=== PATIENT | female | born 2000 | race Caucasian/White ===

== ENCOUNTER 2020-07-01 08:36 | Inpatient (IN) | payer BC, SELFPAY ==
[2020-07-01] VITALS (14 sets, daily range): BP systolic 92–116; BP diastolic 52–80; PULSE 113–143; RESP 15–38; TEMP 36.5–37.1; O2SAT 96–100; BMI 19.8
--- NOTE | ~2020-07-01 | CT_ITS ---
EXAMINATION: CTA chest PE abdomen pel DATE: 07/02/2020 09:03 INDICATION: Acute pancreatitis. TECHNIQUE: Computed tomography angiography (CTA) of the chest was performed with 100 mL Omnipaque-350 intravenous contrast timed to evaluate the pulmonary arteries. Coronal maximum intensity projection 3D-reconstructions were created by the technologist. Computed tomography (CT) of the abdomen and pelv is was performed with intravenous contrast. Automated exposure control and iterative reconstruction t echnique were employed. The dose-length product was 254.06 mGy-cm. COMPARISON: None. FINDINGS: CTA chest: The lungs demonstrate mild dependent atelectasis. There are trace pleural effusions. The h eart size is normal. No pericardial effusion. Pneumomediastinum is noted. There is no pulmonary embol us. CT abdomen and pelvis: The liver is normal. The gallbladder is normal in size. Gallbladder wall thick ening is noted, likely interstitial edema. The spleen is normal. There is mild edema adjacent to the tail of the pancreas, consistent with acute interstitial pancreatitis. The adrenal glands and kidneys are normal. There are no dilated loops of bowel. The appendix is normal. There are no pathologically enlarged lymph nodes. There is trace pelvic ascites. The bones are unremarkable. IMPRESSION: 1. Mild acute interstitial pancreatitis. 2. No pulmonary embolus. 3. Pneumomediastinum. Reviewed, dictated and finalized at location B.
--- NOTE | ~2020-07-01 | XR_ITS ---
XR chest 1V portable DATE: 07/03/2020 05:38 INDICATION: Pneumomediastinum TECHNIQUE: Portable upright AP chest on 07/03/2020 at 0535 hours COMPARISON: 07/02/2020 CTA chest 07/01/2020 portable AP chest FINDINGS: Azygos lobe, normal variant. Normal heart size. Pneumomediastinum is again present. No pneu mothorax is evident. No hilar or mediastinal enlargement is evident. Normal heart size. No pleural effusion. Minimal atele ctasis at the lung bases. IMPRESSION: Minimal atelectasis at the lung bases Pneumomediastinum Reviewed, dictated and finalized at location A.
--- NOTE | ~2020-07-01 | XR_ITS ---
EXAMINATION: XR chest 1V portable DATE: 07/01/2020 11:42 INDICATION: Admitted ketoacidosis TECHNIQUE: frontal view of the chest was obtained. COMPARISON: None FINDINGS: The lungs are clear with no focal airspace opacities, pulmonary edema, pleural effusion or pneumothor ax. Incidentally noted normal variant azygos lobe and fissure. The cardiomediastinal silhouette is no rmal. Visualized bones and soft tissues are unremarkable. IMPRESSION: 1. No acute cardiopulmonary disease. Reviewed, dictated and finalized at location A.
[2020-07-01 08:46] LABS: Glucose Point of Care > 500 (65-105)
[2020-07-01] MEDS: SODIUM CHLORIDE 0.9% IV 1,000 ML 999 ML IV CONT ×4 (09:12→12:50)
[2020-07-01] MEDS: INSULIN HUMAN REGULAR (*BKC) 100 UNITS in SODIUM CHLORIDE 0.9% IV 99 ML 8.8 UNITS IV CONT (09:21)
[2020-07-01 09:25] LABS: Basophils Absolute Auto 0.2 K/mm3 (0.0-0.1); Basophils Percent Auto 0.4 % (0.2-1.2); Hematocrit 47.9 % (37.0-47.0); Hemoglobin 14.8 g/dL (12.0-15.0); Immature Granulocyte Absolute 0.79 K/mm3 (0.00-0.031); Immature Granulocyte Percent A 2.2 % (0-0.5); Lymphocytes Absolute Auto 2.27 K/mm3 (0.9-3.2); Lymphocytes Percent Auto 6.4 % (18.3-44.2); Mean Corpuscular HGB Conc 30.9 g/dl (32-36); Mean Corpuscular Hemoglobin 30.6 pg (26-34); Mean Platelet Volume 10.5 fl (7.4-10.4); Monocytes Absolute Auto 3.5 K/mm3 (0.1-0.6); Neutrophils Absolute Auto 28.5 K/mm3 (1.3-6.7); Platelet Count Result 412 k/mm3 (150-375); Red Blood Count 4.84 M/mm3 (4.2-5.4); Red Cell Distribution Width 12.1 % (11.5-14.5); White Blood Count 35.3 K/mm3 (4.5-10.0)
[2020-07-01 09:46] LABS: Add Urine Microscopic? YES; Appearance Urine Clear (Clear); Bilirubin Urine Negative (Negative); Blood Urine Negative (Negative); Color Urine Straw (Yellow); Glucose Urine UA 3+ mg/dL (Negative); Ketones Urine 2+ mg/dL (Negative); Leukocyte Esterase Ur Negative LEU/UL (Negative); Nitrate Urine Negative (Negative); Protein Urine Negative (Negative); RBC Urine 0-2 /hpf (0-2); Specific Grav Ur 1.022 (1.001-1.035); Squamous Epithelial Cell Urine Rare /hpf (Few); Urobilinogen Urine Negative mg/dL (<2.0); WBC Urine 0-3 /hpf
[2020-07-01 09:58] LABS: Platelet Estimate Adequate (Adequate)
[2020-07-01 09:59] LABS: Crenated RBC 2+ (NORMAL)
[2020-07-01 10:09] LABS: Glucose 934 mg/dL (65-105)
--- NOTE | 2020-07-01 10:30 | PC.NURSE ---
3 unsuccessful attempts for second IV start between 2 RNs.
[2020-07-01 10:31] LABS: Alanine Aminotransferase 19 U/L (4-35); Albumin Level 5.5 g/dL (3.5-5.1); Alkaline Phosphatase 119 U/L (38-126); Aspartate Amino Transferase 24 U/L (14-36); Bilirubin,Total 2.1 mg/dL (0.2-1.3); Blood Urea Nitrogen 32 mg/dL (7-17); Calcium 10.6 mg/dL (8.4-10.2); Carbon Dioxide < 5 mmol/L (22-30); Chloride 89 mmol/L (98-107); Estimated CRCL calculation 35 ml/min; Estimated Glomerular Filt Rate 31; Magnesium 2.5 mg/dL (1.6-2.3); Phosphorus 10.4 mg/dL (2.5-4.5); Potassium 5.7 mmol/L (3.4-5.0); Sodium 132 mmol/L (137-145)
--- NOTE | 2020-07-01 11:01 | ED.GENADULT ---
HPI - General Adult General Chief complaint: Nausea/Vomiting/Diarrhea Stated complaint: vomiting Time Seen by Provider: 07/01/20 08:52 Source: family Limitations: clinical condition History of Present Illness HPI narrative: Patient is 20 years old white female brought to the emergency room by her mom, complaining of general body aches and pain all over. The started yesterday with nausea and vomiting. Patient is type 1 diabetes since 4 years old. Patient denies any fever or chills. Patient on insulin pump Related Data Allergies Allergy/AdvReac Type Severity Reaction Status Date / Time No Known Allergies Allergy Mild Verified 07/01/20 08:55 Review of Systems Review of Systems: Narrative: CONSTITUTIONAL: Denies fever, chills, or sweats. EYES: Denies visual changes, redness, or discharge. ENT: Denies rhinorrhea, congestion, sore throat, or otalgia. CARDIOVASCULAR: Denies chest pain, palpitations, or edema. RESPIRATORY: Denies cough or dyspnea. GASTROINTESTINAL: Nausea and vomiting GENITOURINARY: Denies dysuria or hematuria. SKIN: Denies rash or itching. MUSCULOSKELETAL: Denies back pain, joint pain, or myalgia. NEUROLOGIC: Denies headache, numbness, or weakness. PSYCHIATRIC: Denies anxiety or depression. [facility] Family History Family History Grandparent Cerebrovascular accident Family history of lymphoma Father Family history of type 1 diabetes mellitus Family history of diabetes mellitus in first degree relative Other Hypertension Social History Social History Smoking status: Never smoker Alcohol intake: never Exam Narrative: Exam Narrative: General appearance: Well-developed, well-nourished, uncomfortable, moderate suicide Skin: Normal color Head: Normocephalic, nontraumatic Eyes: Clear conjunctiva ENT: Oropharynx normal, ears normal, nose normal Neck: Supple, nontender Chest and respiratory: Airway patent, no respiratory distress, no accessory muscle use Heart: Tachycardia Abdomen: Diffuse severe tenderness Vascular: Normal peripheral pulses, normal capillary refill. Musculoskeletal: Diffuse severe tenderness of the chest and back all over Neurologic: Alert and oriented ?3, RN CHRONIC is normal as tested, no gross motor deficit Course Course Emergency Course: Stable Vital Signs Vital signs: Vital Signs Pulse Rate 143 H 07/01/20 08:49 Respiratory Rate 22 H 07/01/20 08:49 Blood Pressure 101/59 L 07/01/20 08:49 Pulse Oximetry 99 07/01/20 08:49 Pulse Rate 128 H 07/01/20 10:35 Respiratory Rate 18 07/01/20 10:35 Blood Pressure 109/57 L 07/01/20 10:35 Pulse Oximetry 99 07/01/20 08:49 Medical Decision Making MDM Narrative Medical decision making narrative: DKA is my concern. DKA protocol ordered. IV normal saline ordered. Further plan to follow Differential Diagnosis Differential Diagnosis: DKA, dehydration, urinary tract infection, pneumonia, electrolyte imbalance, insulin pump failure, patient noncompliance with medication Vital Signs Vital Signs: Vital Signs Pulse Rate 143 H 07/01/20 08:49 Respiratory Rate 22 H 07/01/20 08:49 Blood Pressure 101/59 L 07/01/20 08:49 Pulse Oximetry 99 07/01/20 08:49 Pulse Rate 128 H 07/01/20 10:35 Respiratory Rate 18 07/01/20 10:35 Blood Pressure 109/57 L 07/01/20 10:35 Pulse Oximetry 99 07/01/20 08:49 Lab Data Result diagrams: 07/01/20 09:08 07/01/20 09:08 Labs: Lab Results 07/01/20 07/01/20 07/01/20 Range/Units 08:41 09:08 09:08 WBC 35.3 H (4.5-10.0) K/mm3 RBC 4.84 (4.2-5.4) M/mm3
[2020-07-01 11:24] LABS: Glucose Point of Care > 500 (65-105)
--- NOTE | 2020-07-01 12:32 | ADMGEN ---
This patient, Tasneem Roth, was admitted to Intensive Care Unit-10. Patient/family oriented to hospital policies and general routines including ID bracelet, bed and alarms, visiting hours, pain management, procedures, bathroom and other care routines, personal items, smoking policy, room service/diet, and visiting hours. Information on how to activate the Rapid Response Team has been discussed. Patient/Family are encouraged to report perceived risks to care and to ask questions if they do not understand what they are told or what they should do.
--- NOTE | 2020-07-01 12:42 | WPDCNINT ---
Assessment and Plan Assessment and plan (1) DKA, type 1: Qualifiers: Diabetes mellitus complication detail: without coma Qualified Code(s): E10.10 - Type 1 diabetes mellitus with ketoacidosis without coma Code(s): E10.10 - Type 1 diabetes mellitus with ketoacidosis without coma Status: Acute Assessment and Plan: Patient presented with nausea, vomiting, abdominal pain, decreased oral intake, leukocytosis and metabolic acidosis -in the ER patient was found to be acidotic, elevated beta hydroxybutyrate, elevated blood sugars and was found to be in diabetic ketoacidosis -patient given 3 L IV fluid bolus in the ER and started on insulin infusion per DKA protocol -will obtain hemoglobin A1c -continue insulin infusion for now -ice chips only -will have chemical educator and stonemason apprentice evaluated the patient in a.m. -patient has a fancy a insulin pump, the adhesive of which has to be changed today. I have asked the patient to switch of her insulin pump which is on her left upper extremity (2) Dehydration: Code(s): E86.0 - Dehydration Status: Acute Assessment and Plan: Patient remains tachycardic, oral mucosa is eyes dry, with a give additional IV fluid bolus continue to monitor (3) Abdominal pain: Code(s): R10.9 - Unspecified abdominal pain Status: Acute Assessment and Plan: Patient is continues to have diffuse abdominal pain more so in the epigastric region, - ill obtain lipase level -would be related to DKA, will continue to monitor -according the patient pain is improved and she feels much better. If pain is not resolved will obtain CT scan of the abdomen. No CT scan at this time due to acute kidney injury (4) Nausea & vomiting: Code(s): R11.2 - Nausea with vomiting, unspecified Status: Acute Assessment and Plan: Nausea and vomiting have resolved after IV fluids and starting the insulin infusion. (5) DVT prophylaxis: Code(s): Z29.9 - Encounter for prophylactic measures, unspecified Status: Acute Assessment and Plan: SCDs Additional Plan Discussed with patient and her mother at bedside updated them with patient's condition plan of care. I explained to them but diabetic ketoacidosis, answered all the questions. Code status: Full code Critical care time spent: 43 minutes This dictation may have been done utilizing a voice recognition system. Attempts have been made to correct errors. However, there may be uncorrected grammatical, spelling, and recognition errors present. Due to a high probability of clinically significant, life threatening deterioration, the patient required my highest level of preparedness to intervene emergently and I personally spent this critical care time directly and personally managing the patient. This critical care time included obtaining a history; examining the patient; pulse oximetry; ordering and review of studies; arranging urgent treatment with development of a management plan; evaluation of patient's response to treatment; frequent reassessment; and discussions with other providers. It was exclusive of separately billable procedures and treating other patients and teaching time. Please see Assessment and Plan section and the rest of the note for further information on patient assessment and treatment Interior Design Consultant Consult Note Consult date: 07/01/20 Time Seen: 12:09 Reason for consult: Diabetic ketoacidosis, abdominal pain, nausea and vomiting, leukocytosis HPI: Tasneem Roth is a 20 year old female with history of diabetes type 1, vitamin-D deficiency, dysfunctional uterine bleed presented the ER complains of abdominal pain, nausea, vomiting the started yesterday. Patient has been having dry heaves and vomiting and unable to keep down any liquids or solids. Insulin pump a she feels is working, mother at bedside. In the ED patient was found to have of 934, carbon dioxide <5, creatinine of 2.0 elevate
[2020-07-01] MEDS: SODIUM CHLORIDE 0.9% IV 1,000 ML 150 ML IV CONT (12:49)
[2020-07-01 13:33] LABS: Glucose Point of Care 361 (65-105)
[2020-07-01 13:34] LABS: Glucose Point of Care 401 (65-105)
[2020-07-01 13:38] LABS: Hemoglobin A1C 9.2 % (<5.7)
[2020-07-01 13:39] LABS: Lipase 605 U/L (23-300)
[2020-07-01] MEDS: INSULIN HUMAN REGULAR (*BKC) 100 UNITS in SODIUM CHLORIDE 0.9% IV 99 ML 18 UNITS IV CONT (14:24)
[2020-07-01 14:42] LABS: Glucose Point of Care 231 (65-105)
--- NOTE | 2020-07-01 15:15 | PM.IMHP ---
H&P: HPI History of Present Illness Date/Time: 07/01/20 15:15 Chief Complaint: Nausea and vomiting. Narrative: This is a 20-year-old female with type 1 diabetes mellitus who presented to the emergency department earlier today via private vehicle from home with complaints of nausea and vomiting. She is quite somnolent at the time my evaluation is not very talkative. From what I can gather she developed abdominal discomfort with nausea and vomiting sometime yesterday which persisted throughout the night. Today she felt really bad with generalized body aches and weakness and came in for evaluation. She was found to be in diabetic ketoacidosis and has since been started on insulin drip. Hemoglobin A1c today was 9.2% and it looks like she was seen by Dr. Taty Lee (her toe sewer) just a couple of weeks ago who at that time remarked that the patient continues to have issues getting her diabetes under control despite being started on insulin pump. She has thus far been non compliant with wearing her Dexcom. Aside from being tired she has no significant complaints at this time and specifically denies fever, chills, sweats, headache, cold and flu symptoms, chest pain, shortness of breath, cough, current abdominal pain, dysuria, diarrhea. Review of Systems Review of Systems: Narrative: Twelve systems were reviewed with pertinent positives and negatives as per HPI. She had an eye exam within the last year which was unremarkable. No history of retinopathy, nephropathy, or significant neuropathy. She is on the Depo shot and has irregular periods. Except as documented, all other systems were reviewed and are negative. [facility] Past Medical History Medical History (Updated 07/01/20 @ 14:28 by Mary Carmen Mcgrath PA-C) COVID-19 (~03/2020) Type 1 diabetes mellitus Diagnosed at the age of 4. Hemoglobin A1c was 9.2% on 07/01/2020. Surgical History Surgical History (Updated 07/01/20 @ 14:27 by Mary Carmen Mcgrath PA-C) No history of previous surgery Family History Family History Grandparent Cerebrovascular accident Family history of lymphoma Father Family history of type 1 diabetes mellitus Family history of diabetes mellitus in first degree relative Other Hypertension Social History Social History Social History: The patient lives in [place] with her family. Denies alcohol, tobacco, and illicit substance abuse. She designates her parents as her surrogate decision makers. Code status: Full code. Meds Home Medications and Allergies Home Medications Medication Instructions Recorded Confirmed Type medroxyprogesterone 150 mg/mL See Rx Instructions .ROUTE 02/17/20 07/01/20 Rx intramuscular suspension .COMPLEX #1 ml insulin pump cartridge [Omnipod 07/01/20 07/01/20 History Dash 5 Pack Pod] Allergies Allergy/AdvReac Type Severity Reaction Status Date / Time No Known Allergies Allergy Mild Verified 07/01/20 08:55 Vital Signs Vital Signs - 24 hr 07/01/20 08:49 07/01/20 09:03 07/01/20 09:31 Temperature Pulse Rate 143 H 132 H 135 H Respiratory Rate 22 H 25 H 38 H Blood Pressure 101/59 L 113/53 L 105/80 Pulse Oximetry 99 07/01/20 10:01 07/01/20 10:35 07/01/20 11:00 Temperature Pulse Rate 126 H 128 H 128 H Respiratory Rate 20 18 19 Blood Pressure 116/67 109/57 L 110/76 Pulse Oximetry 100 07/01/20 11:30 07/01/20 11:55 07/01/20 12:00 Temperature 98.1 F Pulse Rate 120 H 124 H 120 H Respiratory Rate 15 18 22 H Blood Pressure 113/74 100/56 L Pulse Oximetry 100 100 100 07/01/20 13:52 Temperature Pulse Rate 117 H Respiratory Rate 15 Blood Pressure 107/57 L Pulse Oximetry 98 Exam Narrative: Exam Narrative: General: Moderately ill-appearing female supine in bed in no distress. Weight: 54 kilograms. BMI: 19.8. HEENT: PERRL, EOMI. Sclera
[2020-07-01 15:26] LABS: CRP 4.7 mg/dL (<1.0)
[2020-07-01 16:52] LABS: Glucose Point of Care 201 (65-105)
[2020-07-01 16:53] LABS: Glucose Point of Care 146 (65-105)
[2020-07-01 17:14] LABS: Anion Gap 6 mmol/L (8-16); Blood Urea Nitrogen 26 mg/dL (7-17); Calcium 8.9 mg/dL (8.4-10.2); Carbon Dioxide 20 mmol/L (22-30); Chloride 114 mmol/L (98-107); Estimated CRCL calculation 67 ml/min; Estimated Glomerular Filt Rate > 60; Glucose 159 mg/dL (65-105); Sodium 140 mmol/L (137-145)
[2020-07-01] MEDS: INSULIN GLARGINE (*BKC) 100 UNITS/ML 40 UNITS SUB-Q (18:03)
[2020-07-01 18:39] LABS: Glucose Point of Care 120 (65-105)
--- NOTE | 2020-07-01 18:42 | PC.NURSE ---
when pt came up here from ED, pt's mother and pt removed insulin infusion pump from left upper arm
[2020-07-01] MEDS: BENZOCAINE/MENTHOL (*BKC) 18 EA LOZENGE 1 LOZENGE PO (19:50)
[2020-07-01] MEDS: FAMOTIDINE 20 MG/2 ML VIAL IV PUSH (19:54)
[2020-07-01 21:43] LABS: Anion Gap 9 mmol/L (8-16); Blood Urea Nitrogen 25 mg/dL (7-17); Calcium 8.7 mg/dL (8.4-10.2); Carbon Dioxide 17 mmol/L (22-30); Chloride 108 mmol/L (98-107); Estimated CRCL calculation 74 ml/min; Estimated Glomerular Filt Rate > 60; Glucose 295 mg/dL (65-105); Potassium 4.5 mmol/L (3.4-5.0); Sodium 134 mmol/L (137-145)
[2020-07-02] VITALS (13 sets, daily range): BP systolic 95–117; BP diastolic 56–74; PULSE 75–128; RESP 16–21; TEMP 36.6–37.2; O2SAT 97–100
[2020-07-02 05:04] LABS: Hematocrit 35.7 % (37.0-47.0); Mean Corpuscular HGB Conc 33.6 g/dl (32-36); Mean Corpuscular Hemoglobin 30.1 pg (26-34); Mean Corpuscular Volume 89.5 fl (80-100); Platelet Count Result 290 k/mm3 (150-375); Red Blood Count 3.99 M/mm3 (4.2-5.4); Red Cell Distribution Width 12.1 % (11.5-14.5)
[2020-07-02 05:27] LABS: Alanine Aminotransferase 9 U/L (4-35); Albumin Level 3.3 g/dL (3.5-5.1); Alkaline Phosphatase 59 U/L (38-126); Anion Gap 9 mmol/L (8-16); Aspartate Amino Transferase 20 U/L (14-36); Bilirubin,Total 1.1 mg/dL (0.2-1.3); Blood Urea Nitrogen 22 mg/dL (7-17); CRP 8.1 mg/dL (<1.0); Calcium 8.8 mg/dL (8.4-10.2); Carbon Dioxide 19 mmol/L (22-30); Chloride 106 mmol/L (98-107); Estimated CRCL calculation 75 ml/min; Estimated Glomerular Filt Rate > 60; Glucose 307 mg/dL (65-105); Lipase 1563 U/L (23-300); Magnesium 1.9 mg/dL (1.6-2.3); Phosphorus 2.8 mg/dL (2.5-4.5); Potassium 4.1 mmol/L (3.4-5.0); Sodium 134 mmol/L (137-145)
[2020-07-02 07:31] LABS: Glucose Point of Care 253 (65-105)
[2020-07-02 07:43] LABS: Band Neutrophils Percent 3 % (0-6); Lymphocytes Absolute Manual 2.31 K/mm3 (1.1-4.5); Monocytes Absolute Manual 0.42 K/mm3 (0.1-0.90); Monocytes Percent Manual 2 % (3-9); Neutrophils Absolute Manual 18.27 K/mm3 (1.7-7.2); Neutrophils Percent Manual 84 % (46-73); Platelet Estimate Adequate (Adequate); Total Cells Counted 100
[2020-07-02] MEDS: INSULIN GLARGINE (*BKC) 100 UNITS/ML 55 UNITS SUB-Q (08:24)
[2020-07-02] MEDS: INSULIN ASPART (*BKC) 100 UNITS/ML SUB-Q ×2 (08:27→11:58)
[2020-07-02] MEDS: FAMOTIDINE 20 MG/2 ML VIAL IV PUSH ×2 (08:27→20:31)
[2020-07-02] MEDS: SODIUM CHLORIDE 0.9% IV 1,000 ML 999 ML IV CONT (09:28)
--- NOTE | 2020-07-02 09:48 | WPDINTPN ---
Progress Note: A&P Assessment and Plan (1) DKA, type 1: Qualifiers: Diabetes mellitus complication detail: without coma Qualified Code(s): E10.10 - Type 1 diabetes mellitus with ketoacidosis without coma Code(s): E10.10 - Type 1 diabetes mellitus with ketoacidosis without coma Status: Acute Assessment and Plan: Patient presented with nausea, vomiting, abdominal pain, decreased oral intake, leukocytosis and metabolic acidosis -in the ER patient was found to be acidotic, elevated beta hydroxybutyrate, elevated blood sugars and was found to be in diabetic ketoacidosis -patient received adequate IV fluids in the ER as well as the ICU -hemoglobin A1c was 9.2 -patient has been transitioned to long-acting insulin sliding scale insulin -will have sweatband separator and director network development evaluated the patient in a.m. -patient has a fancy a insulin pump, the adhesive of which has to be changed today. I have asked the patient to switch of her insulin pump which is on her left upper extremity -CT scan of the abdomen and pelvis showed mild acute interstitial pancreatitis, no pulmonary embolism, pneumomediastinum. Discussed with Radiology, pneumomediastinum could be related to nausea vomiting and retching due to DKA. No fluid or air into the diaphragm was noted (2) Dehydration: Code(s): E86.0 - Dehydration Status: Acute Assessment and Plan: RESOLVED - (3) Abdominal pain: Code(s): R10.9 - Unspecified abdominal pain Status: Acute Assessment and Plan: Patient is continues to have diffuse abdominal pain more so in the epigastric region, -elevated lipases a CT scan of the abdomen and pelvis showed mild acute interstitial pancreatitis, continue maintenance IV fluids -according the patient pain is improved and she feels much better. -continue to monitor lipase level (4) Nausea & vomiting: Code(s): R11.2 - Nausea with vomiting, unspecified Status: Acute Assessment and Plan: RESOLVED Nausea and vomiting have resolved after IV fluids and starting the insulin infusion. (5) DVT prophylaxis: Code(s): Z29.9 - Encounter for prophylactic measures, unspecified Status: Acute Assessment and Plan: SCDs Additional Plan Discussed with patient and her mother at bedside updated them with patient's condition plan of care. I did updated them with the results of the CT scan lipase levels. Also discussed with them regarding patient having mild interstitial pancreatitis Code status: Full code Critical care time spent: 34 minutes This dictation may have been done utilizing a voice recognition system. Attempts have been made to correct errors. However, there may be uncorrected grammatical, spelling, and recognition errors present. Due to a high probability of clinically significant, life threatening deterioration, the patient required my highest level of preparedness to intervene emergently and I personally spent this critical care time directly and personally managing the patient. This critical care time included obtaining a history; examining the patient; pulse oximetry; ordering and review of studies; arranging urgent treatment with development of a management plan; evaluation of patient's response to treatment; frequent reassessment; and discussions with other providers. It was exclusive of separately billable procedures and treating other patients and teaching time. Please see Assessment and Plan section and the rest of the note for further information on patient assessment and treatment Subjective Date/time seen: 07/02/20 09:48 Interval history: Reason for consult: Diabetic ketoacidosis, abdominal pain, nausea and vomiting, leukocytosis 07/02/2020: Patient seen examined. Patient states she feels much better, denies any nausea, vomiting, diarrhea. Able to tolerate p.o. diet. Complains of mild abdominal pain, epigastric region. Patient is hemodynamically stable, g
[2020-07-02] MEDS: SODIUM CHLORIDE 0.9% IV 1,000 ML 100 ML IV CONT ×2 (10:37→21:06)
[2020-07-02 11:57] LABS: Glucose Point of Care 237 (65-105)
--- NOTE | 2020-07-02 14:03 | PM.IMPN ---
Progress Note: A&P Assessment and Plan (1) Pneumomediastinum: Code(s): J98.2 - Interstitial emphysema Status: Acute Assessment and Plan: CT scan shows pneumomediastinum. Radiologist stated this finding was also noted on the chest x-ray on admission. Most likely related to her nausea and vomiting. Repeat chest x-ray in the morning. CT scan showing no PE. (2) Diabetic ketoacidosis associated with type 1 diabetes mellitus: Code(s): E10.10 - Type 1 diabetes mellitus with ketoacidosis without coma Status: Acute Assessment and Plan: A1c 9.2% and recent documentation per application technician states that is typical for the patient. Patient presents with nausea and vomiting found to be in DKA. She was started on DKA protocol. Anion gap was roughly 38. With insulin drip and IV fluids, her anion gap has closed. She is eating and tolerating oral intake. She has been transitioned to Lantus. family life educator and dietitian consulted. Resume insulin pump once her Lipase trends down and she remains stable. (3) Pancreatitis: Code(s): K85.90 - Acute pancreatitis without necrosis or infection, unspecified Status: Acute Assessment and Plan: Lipase elevated on admission and has climbed to 1563. CT scan showing mild gallbladder wall thickening and mild edema the tail of the pancreas consistent with acute interstitial pancreatitis. Patient is eating and tolerating without nausea or vomiting. Will continue the same and monitor lipase. Cut back to liquid diet if she has more nausea or vomiting. (4) Acute kidney injury: Code(s): N17.9 - Acute kidney failure, unspecified Status: Acute Assessment and Plan: Creatinine was 2.0 on admission. Secondary to hypovolemia from poor oral intake and vomiting. Creatinine has normalized with aggressive IV fluid hydration. (5) Dehydration: Code(s): E86.0 - Dehydration Status: Acute Assessment and Plan: Dehydration related to the DKA. Still tachycardic at times felt to be related to dehydration. Continue aggressive IV fluid rehydration as detailed above. (6) Electrolyte abnormality: Code(s): E87.8 - Other disorders of electrolyte and fluid balance, not elsewhere classified Status: Acute Assessment and Plan: Patient has several, mild electrolyte abnormalities that have resolved. Continue to monitor (7) Abdominal pain: Code(s): R10.9 - Unspecified abdominal pain Status: Acute Assessment and Plan: Likely related to DKA however consider pancreatitis realted. Eating okay. Continue to monitor. (8) Leukocytosis: Code(s): D72.829 - Elevated white blood cell count, unspecified Status: Acute Assessment and Plan: WBC 35K on admission. WBC trending down without abx. Most likely a stress response related to DKA and/or pancreatitis. Follow. (9) Type 1 diabetes mellitus: Code(s): E10.9 - Type 1 diabetes mellitus without complications Status: Acute Assessment and Plan: Patient has had diabetes type 1 since age 4. Currently on insulin pump. She follows with application technician. A1c 9.2. She continues to have trouble getting her diabetes under control despite the pump. (10) DVT prophylaxis: Code(s): Z29.9 - Encounter for prophylactic measures, unspecified Status: Acute Assessment and Plan: SCDs Subjective Date/time seen: 07/02/20 14:03 Interval history: 20yo female with DM type I diagnosed when she was 4yo here for DKA. Patient with diffuse abdominal pain. She has been eating without problems. Food does not make her stomach pain worse. No chest pain. No nausea or vomiting. She does use insulin pump and this has been functioning normally. Exam Narrative: Exam Narrative: AF 98.1 110/61 107 16 100% ra Gen - NARD Chest - CTA bilaterally, nml RR CV - RRR S1/S2 Abd - mild epigastric
--- NOTE | 2020-07-02 16:26 | PC.NURSE ---
This patient, Tasneem Roth, was received from [ICU ] on 07/02/20 at 1626. Patient/family oriented to unit policies and routines
--- NOTE | 2020-07-02 16:28 | PC.NURSE ---
This patient, Tasneem Roth, was transferred to [facility] on 07/02/20 at 1615. Personal belongings sent with patient. Report given to DARREN Rodriguez. Appropriate documentation sent with patient.
[2020-07-02 17:20] LABS: Glucose Point of Care 196 (65-105)
[2020-07-02 20:49] LABS: Glucose Point of Care 405 (65-105)
[2020-07-02 20:49] LABS: Glucose Point of Care 398 (65-105)
[2020-07-02 22:11] LABS: Anion Gap 3 mmol/L (8-16); Blood Urea Nitrogen 12 mg/dL (7-17); Calcium 8.6 mg/dL (8.4-10.2); Carbon Dioxide 25 mmol/L (22-30); Chloride 105 mmol/L (98-107); Estimated CRCL calculation 109 ml/min; Estimated Glomerular Filt Rate > 60; Glucose 375 mg/dL (65-105); Potassium 3.9 mmol/L (3.4-5.0); Sodium 133 mmol/L (137-145)
[2020-07-02] MEDS: INSULIN ASPART (*BKC) 100 UNITS/ML 12 UNITS SUB-Q (22:23)
[2020-07-03] VITALS (9 sets, daily range): BP systolic 109–112; BP diastolic 58–73; PULSE 73–103; RESP 16–18; TEMP 36.2–36.7; O2SAT 100
[2020-07-03 00:42] LABS: Glucose Point of Care 170 (65-105)
[2020-07-03 05:51] LABS: Glucose Point of Care 71 (65-105)
[2020-07-03 06:09] LABS: Basophils Percent Auto 0.2 % (0.2-1.2); Eosinophils Absolute Auto 0.1 K/mm3 (0-0.3); Eosinophils Percent Auto 0.6 % (0-4.4); Hematocrit 33.8 % (37.0-47.0); Hemoglobin 11.5 g/dL (12.0-15.0); Immature Granulocyte Absolute 0.04 K/mm3 (0.00-0.031); Immature Granulocyte Percent A 0.5 % (0-0.5); Lymphocytes Absolute Auto 1.98 K/mm3 (0.9-3.2); Lymphocytes Percent Auto 22.4 % (18.3-44.2); Mean Corpuscular Hemoglobin 30.9 pg (26-34); Mean Corpuscular Volume 90.9 fl (80-100); Mean Platelet Volume 9.8 fl (7.4-10.4); Monocytes Absolute Auto 0.7 K/mm3 (0.1-0.6); Monocytes Percent Auto 8.2 % (2.6-8.5); Neutrophils Percent Auto 68.1 % (45.5-73.1); Platelet Count Result 201 k/mm3 (150-375); Red Blood Count 3.72 M/mm3 (4.2-5.4); Red Cell Distribution Width 12.5 % (11.5-14.5); White Blood Count 8.8 K/mm3 (4.5-10.0)
[2020-07-03 06:26] LABS: Anion Gap 2 mmol/L (8-16); Blood Urea Nitrogen 10 mg/dL (7-17); Calcium 8.7 mg/dL (8.4-10.2); Carbon Dioxide 29 mmol/L (22-30); Chloride 107 mmol/L (98-107); Estimated CRCL calculation 108 ml/min; Estimated Glomerular Filt Rate > 60; Glucose 86 mg/dL (65-105); Lipase 759 U/L (23-300); Potassium 3.4 mmol/L (3.4-5.0); Sodium 138 mmol/L (137-145)
[2020-07-03] MEDS: SODIUM CHLORIDE 0.9% IV 1,000 ML 100 ML IV CONT ×2 (08:03→19:52)
[2020-07-03] MEDS: FAMOTIDINE 20 MG/2 ML VIAL IV PUSH ×2 (08:06→20:00)
[2020-07-03] MEDS: INSULIN GLARGINE (*BKC) 100 UNITS/ML 55 UNITS SUB-Q (08:11)
[2020-07-03 09:14] LABS: Glucose Point of Care 136 (65-105)
--- NOTE | 2020-07-03 12:15 | PCDIET ---
Nutrition Follow-Up Complete: Nutrition Diagnosis: Altered nutrition related labs related to diabetes mellitus as evidenced by HgbA1C of 9.2%. Nutrition Goal: Patient to consume 75% of meals or greater Goal in progress. Patient consuming 75% of meals thus far. Requesting Glucerna Shakes which would be appropriate for bedtime snack. Diet is diabetic, carbohydrate controlled. Glucose much improved today. Patient denies questions regarding diet. Again emphasized importance of improved glucose control long-term with father in room. Last recorded weight is 54.5 kg which is stable with last review. Bowel Motility: No documented BM as of yet. Labs Reviewed: Hgb (11.5), Hct (33.8), Glu (86), Cr (0.6), Lipase (759) Meds Noted: NS at 100mL/hr, Pepcid, Novolog, Lantus Additional Notes: No documented skin breakdown. Will continue to monitor with same goal. Nutrition Monitoring and Evaluation: Follow up in 7 days.
[2020-07-03 12:19] LABS: Glucose Point of Care 211 (65-105)
[2020-07-03] MEDS: INSULIN ASPART (*BKC) 100 UNITS/ML SUB-Q ×2 (12:22→18:02)
--- NOTE | 2020-07-03 15:17 | PM.IMPN ---
Progress Note: A&P Assessment and Plan (1) Pancreatitis: Code(s): K85.90 - Acute pancreatitis without necrosis or infection, unspecified Status: Acute (2) Pneumomediastinum: Code(s): J98.2 - Interstitial emphysema Status: Acute (3) Leukocytosis: Code(s): D72.829 - Elevated white blood cell count, unspecified Status: Acute (4) Electrolyte abnormality: Code(s): E87.8 - Other disorders of electrolyte and fluid balance, not elsewhere classified Status: Acute (5) Dehydration: Code(s): E86.0 - Dehydration Status: Acute (6) Acute kidney injury: Code(s): N17.9 - Acute kidney failure, unspecified Status: Acute (7) Diabetic ketoacidosis associated with type 1 diabetes mellitus: Code(s): E10.10 - Type 1 diabetes mellitus with ketoacidosis without coma Status: Acute (8) Type 1 diabetes mellitus: Code(s): E10.9 - Type 1 diabetes mellitus without complications Status: Acute (9) Nausea & vomiting: Code(s): R11.2 - Nausea with vomiting, unspecified Status: Acute Additional Plan # Acute DKA: likely exacerbated due to acute pancreatitis, nausea, vomiting. DKA has been treated and resolved wiht iv insulin therapy. she is being transitioned to sq lantus and lsipro. she normally is on insulin pump. she uses 38 units basal insulin along with her prandial dosing. she already received 55 units lantus this am, will have to hold off on initiating her insulin pump in am # type 1 DM: see above # Acute mild pancreatisi: lipase trending down. contineu iv fluid. she is toleraing diet. mild abdominal pain persists but overall improved. recheck lipase in am. # AUDREY: cr 2 on admission. this has improved with iv hydration. # Dehydration: still her heart rate up when ambulates. cotninue iv hydration today. # Pneumomediastinum: noted in ct scan and cxr again. no symptoms related to it. continue conservative management. discussed findings with the patient and family. # Dyselectrolytemia: repalce as needed. ctm # Leukocytosis: no signs of infection. wbc normal without antiibhoitcs. likely stress response relaseted to DKA and/or pacnreatitis. # DVT proph: SCDs Subjective Date/time seen: 07/03/20 15:17 Interval history: 20yo female with DM type I diagnosed when she was 4yo here for DKA. Patient is feelign better. she has no nausea, vomiting. her blood sugars are runing well as well. her heart rate stil jumps to 130s when she ambulates. no fever, chlls, sob, chest pain. she is noramlly on insulin pump and has been on 38 units basal insulin. she has been on insulin pump since childhood. Review of Systems Review of Systems: Narrative: - CONSTITUTIONAL: Denies weight loss, fever and chills. - HEENT: Denies changes in vision and hearing - RESPIRATORY: Denies SOB and cough. - CV: Denies palpitations and CP. - GI: Denies abdominal pain, nausea, vomiting and diarrhea. - : Denies dysuria and urinary frequency. - MSK: Denies myalgia and joint pain. - SKIN: Denies rash and pruritus. - NEUROLOGICAL: Denies headache and syncope. - PSYCHIATRIC: Denies recent changes in mood. Denies anxiety and depression. All systems reviewed & are unremarkable except as noted in HPI and below Exam Narrative: Exam Narrative: Gen - NARD Chest - CTA bilaterally, nml RR CV - RRR S1/S2 Abd - mild epigastric pain but no guarding or rebound. +BS Ext - No pedal edema, 2+ DP. No skin breakdown to the feet Neuro - Alert and oriented. Nonfocal exam. Psych - Nml mood and affect Skin - Warm and dry Objective Data Vital Signs Vital Signs: Vital Signs - 24 hr 07/02/20 16:00 07/02/20 16:43 07/02/20 20:00 Temperature 98.3 F 98.0 F Pulse Rate 110 H 75 88 Respiratory Rate 16 16 Blood Pressure 95/56 L 103/59 L Pulse Oximetry 100 100 07/02/20 22:00 07/03/20 00:00 07/03/20 04:00 Temperature 98 F Pulse Rate 88 93 74 Respiratory Rate 16 B
[2020-07-03 18:07] LABS: Glucose Point of Care 215 (65-105)
[2020-07-03 19:43] LABS: Glucose Point of Care 289 (65-105)
[2020-07-04] VITALS: PULSE 74
[2020-07-04 04:00] VITALS: PULSE 77
[2020-07-04] MEDS: SODIUM CHLORIDE 0.9% IV 1,000 ML 100 ML IV CONT (05:32)
[2020-07-04 06:00] VITALS: BP 121/70; PULSE 82; RESP 18; TEMP 36.5; O2SAT 100
[2020-07-04 06:28] LABS: Basophils Percent Auto 0.3 % (0.2-1.2); Eosinophils Absolute Auto 0.1 K/mm3 (0-0.3); Eosinophils Percent Auto 2.1 % (0-4.4); Hematocrit 32.6 % (37.0-47.0); Hemoglobin 10.8 g/dL (12.0-15.0); Immature Granulocyte Absolute 0.02 K/mm3 (0.00-0.031); Immature Granulocyte Percent A 0.3 % (0-0.5); Lymphocytes Absolute Auto 1.97 K/mm3 (0.9-3.2); Mean Corpuscular HGB Conc 33.1 g/dl (32-36); Mean Corpuscular Hemoglobin 30.2 pg (26-34); Mean Corpuscular Volume 91.1 fl (80-100); Mean Platelet Volume 9.9 fl (7.4-10.4); Monocytes Absolute Auto 0.5 K/mm3 (0.1-0.6); Monocytes Percent Auto 8.3 % (2.6-8.5); Neutrophils Absolute Auto 3.2 K/mm3 (1.3-6.7); Platelet Count Result 188 k/mm3 (150-375); Red Blood Count 3.58 M/mm3 (4.2-5.4); Red Cell Distribution Width 12.2 % (11.5-14.5); White Blood Count 5.8 K/mm3 (4.5-10.0)
[2020-07-04 06:41] LABS: Lipase 577 U/L (23-300)
[2020-07-04 07:58] LABS: Glucose Point of Care 235 (65-105)
[2020-07-04 08:00] VITALS: PULSE 103
[2020-07-04] MEDS: FAMOTIDINE 20 MG/2 ML VIAL IV PUSH (08:25)
--- NOTE | 2020-07-04 09:13 | PM.DS ---
DS: Admitting Diagnosis Admitting Diagnosis Admitting Diagnosis: DKA DS: Discharge Diagnosis Discharge Diagnosis (1) Pancreatitis: Code(s): K85.90 - Acute pancreatitis without necrosis or infection, unspecified Status: Acute (2) Pneumomediastinum: Code(s): J98.2 - Interstitial emphysema Status: Acute (3) Leukocytosis: Code(s): D72.829 - Elevated white blood cell count, unspecified Status: Acute (4) Dehydration: Code(s): E86.0 - Dehydration Status: Acute (5) Acute kidney injury: Code(s): N17.9 - Acute kidney failure, unspecified Status: Acute (6) Diabetic ketoacidosis associated with type 1 diabetes mellitus: Code(s): E10.10 - Type 1 diabetes mellitus with ketoacidosis without coma Status: Acute (7) Nausea & vomiting: Code(s): R11.2 - Nausea with vomiting, unspecified Status: Acute DS: Summary Hospital Course Hospital Course: # Acute DKA: likely exacerbated due to acute pancreatitis, nausea, vomiting. DKA has been treated and resolved wiht iv insulin therapy. she is being transitioned to sq lantus and lsipro. she normally is on insulin pump. she uses 38 units basal insulin along with her prandial dosing. she already received 55 units lantus durign transition. she was transitioned back to insulin pump on 07/04/2020 and will follwo up with her project archivist as scheduled. her a1c is at 9.2. she is planed to get CGM as op basis which should be helpful in regulating her blood sugar. # type 1 DM: see above # Acute mild pancreatisi: lipase trending down. contineu iv fluid. she is toleraing diet. mild abdominal pain persists but overall improved. recheck lipase improving. # AUDREY: cr 2 on admission. this has improved with iv hydration. # Dehydration: still her heart rate up when ambulates. cotninue iv hydration adn imrpoved. # Pneumomediastinum: noted in ct scan and cxr again. no symptoms related to it. continue conservative management. discussed findings with the patient and family. # Dyselectrolytemia: repalce as needed. ctm # Leukocytosis: no signs of infection. wbc normal without antiibhoitcs. likely stress response relaseted to DKA and/or pacnreatitis. # DVT proph: SCDs Status at Discharge Functional status at discharge: independent ambulation Overall status at discharge: patient is progressing back to baseline Time Spent with Patient Time attestation: Total time spent providing and/or coordinating discharge services:34 mins Time spent: Greater than 30 minutes Exam Narrative: Exam Narrative: Gen - NARD Chest - CTA bilaterally, nml RR CV - RRR S1/S2 Abd - mild epigastric pain but no guarding or rebound. +BS Ext - No pedal edema, 2+ DP. No skin breakdown to the feet Neuro - Alert and oriented. Nonfocal exam. Psych - Nml mood and affect Skin - Warm and dry DS: Data Data Completed and Pending Labs on day of discharge: Labs from last 24 hours 07/04/20 07/04/20 07/04/20 07:53 05:49 05:49 WBC 5.8 RBC 3.58 L Hgb 10.8 L Hct 32.6 L MCV 91.1 MCH 30.2 MCHC 33.1 RDW 12.2 Plt Count 188 MPV 9.9 Immature Gran % (Auto) 0.3 Neut % (Auto) 55.0 Lymph % (Auto) 34.0 [place] % (Auto) 8.3 Eos % (Auto) 2.1 Baso % (Auto) 0.3 Lymph # (Auto) 1.97 [place] # (Auto) 0.5 Eos # (Auto) 0.1 Baso # (Auto) 0.0 Abs Immat Gran (auto) 0.02 Absolute Neuts (auto) 3.2 Absolute Nucleated RBC 0.0 Nucleated RBC % 0.0 POC Capillary Glucose 235 H Lipase 577 H 07/03/20 07/03/20 07/03/20 19:39 18:03 12:16 WBC RBC Hgb Hct MCV MCH MCHC RDW Plt Count MPV Immature Gran % (Auto) Neut % (Auto) Lymph % (Auto) [place] % (Auto) Eos % (Auto) Baso % (Auto) Lymph # (Auto) [place] # (Auto) Eos # (Auto) Baso # (Auto) Abs Immat Gran (auto) Absolute Neuts (auto) Absolute Nucleated RBC Nucleated RBC % POC Capill
--- NOTE | 2020-07-04 09:23 | PC.NURSE ---
Dr. Flores instructed to not give lantus and sliding scale he wants her to restart her insulin pump.
[2020-07-04 12:00] VITALS: PULSE 85
[2020-07-04 12:15] LABS: Glucose Point of Care 209 (65-105)
== END 2020-07-04 12:55 | disposition home or self-care (01) | DRG 637 ==
LOC: ANHED 09:09 → ANHICU 11:11 → ANH3MEDSUR 07-03 07:35 → ANHICU 07-06 13:26
PROVIDERS: Internal Medicine; Physician Assistant; Admitting Provider Family Medicine; Emergency Provider Emergency Medicine; PCP Family Medicine; Visit Provider Internal Medicine
DX: E10.10 Type 1 diabetes mellitus with ketoacidosis without coma (principal); K85.90 Acute pancreatitis without necrosis or infection, unspecified; N17.9 Acute kidney failure, unspecified; J98.2 Interstitial emphysema; D72.829 Elevated white blood cell count, unspecified; E86.0 Dehydration; E55.9 Vitamin D deficiency, unspecified; E87.5 Hyperkalemia; Z86.16 Personal history of COVID-19
CPT/HCPCS: 36415; 51701; 71045; 71275; 74177; 80048; 80053; 81001; 81025; 82010; 82948; 83036; 83690; 83735; 84100; 85025; 86140; 96361; 96365; 99285; A9270; J1815; J7030; Q9967

== ENCOUNTER → 2020-07-13 09:53 | Outpatient (CLI) | payer BC, SELFPAY ==
--- NOTE | ~2020-07-13 | XR_ITS ---
EXAMINATION: XR chest 2V 07/13/2020 10:12 INDICATION: Interstitial emphysema. Recent history of Covid infection. PROCEDURE: 2 view chest COMPARISON: 07/03/2020 FINDINGS: The lungs are clear. The cardiomediastinal silhouette is within normal limits. There are no pleural effusions. There is no pneumothorax suspected. IMPRESSION: 1: NO ACUTE CARDIOPULMONARY DISEASE. Reviewed, dictated and finalized at location B.
== END ==
PROVIDERS: PCP Family Medicine; Visit Provider Nurse Practitioner Family
DX: J98.2 Interstitial emphysema (principal)
CPT/HCPCS: 71046

== ENCOUNTER → 2020-11-21 10:15 | Outpatient (CLI) | payer BC, SELFPAY ==
[2020-11-21 20:24] LABS: SARS-CoV-2 RNA PCR Negative
== END ==
PROVIDERS: PCP Family Medicine; Visit Provider Nurse Practitioner Family
DX: Z20.822 Contact with and (suspected) exposure to COVID-19 (principal)
CPT/HCPCS: C9803; U0003; U0005